=== PATIENT | female | born 1940 | race Caucasian/White ===

== ENCOUNTER 2018-05-21 06:53 | Inpatient (IN) ==
[2018-05-21] MEDS ORDERED: FUROSEMIDE 100 MG/10 ML VIAL IV STA (07:13)
[2018-05-21] MEDS ORDERED: FUROSEMIDE 40 MG/4 ML VIAL ONE (07:14)
[2018-05-21 07:27] LABS: Basophils # 0.1 10*3/uL (0.0-0.2); Basophils % 0.2 % (0.0-0.8); Eosinophils # 0.2 10*3/uL (0.0-0.87); Hematocrit 27.7 VOL% (35.7-47.0); Hemoglobin 8.7 GM/DL (12.0-16.0); Immature Granulocytes % 1.1 %; Immature Granulocytes Absolute 0.26 #; Lymphocytes # 2.2 10*3/uL (1.4-4.0); Lymphocytes % 9.5 % (21.3-54.2); Mean Corpuscular HGB Conc 31.4 GM/DL (32-36); Mean Corpuscular Hemoglobin 30 PG (27-34); Mean Corpuscular Volume 95.5 FL (87-102); Mean Platelet Volume 10.3 FL (9.6-12.0); Monocytes # 0.9 10*3/uL (0.11-0.8); Monocytes % 3.8 % (1.7-12.7); Neutrophils # 19.3 10*3/uL (1.4-7.4); Neutrophils % 84.4 % (38.7-73.9); Platelet Count 220 T/CUMM (130-400); Red Cell Distribution Width 12.8 % (9.3-17.3); White Blood Count 22.9 T/CUMM (4-12)
[2018-05-21 07:28] LABS: INR 0.9; PT Patient Result 9.9 SECS; Partial Thromboplastin Time 22.9 SECS (0-40)
[2018-05-21] MEDS ORDERED: ALBUTEROL 2.5 MG/3 ML NEB RESP TX SCH (07:30)
[2018-05-21 07:35] LABS: Albumin 3.4 G/DL (3.4-5.0); Bilirubin,Total 0.4 MG/DL (0.2-1.0); Calcium 7.4 MG/DL (8.5-10.1); Potassium 4.1 MMOL/L (3.5-5.1); Total Protein 7.3 G/DL (6.4-8.3)
[2018-05-21 07:41] LABS: ABG HCO3 23.5 MMOL/L (20-26); ABG Oxygen Saturation 91.7 % (95-100); ABG PCO2 57.3 MM HG (35-48); ABG PH 7.273 (7.35-7.45); ABG PO2 71.7 MM HG (80-95); ABG TCO2 24.9 MMOL/L (23-27)
[2018-05-21 07:46] LABS: Apearance,Urine CLEAR (Clear); Bilirubin,Urine Negative (Negative); Blood, Urine Negative (Negative); Glucose,Urine (UA) 50 mg/dL (Negative); Ketones,Urine Negative (Negative); Mucus,Urine Occasional /LPF (Occasional); Nitrite,Urine Negative (Negative); Protein,Urine >=500 MG/DL; RBC,Urine <1 /HPF (0-4); Urine Color Straw (Yellow); Urine Specific Gravity 1.008 (1.001-1.035); Urine Urobilinogen < 2.0 EU/DL (0.2-1.0); WBC,Urine 1 /HPF (0-6)
[2018-05-21 07:52] LABS: Anisocytosis 1+; Band Neutrophils 6 % (0-10); Eosinophils 1 % (0-10); Lymphocytes 6 % (20-55); Platelet Estimate Normal; Segmented Neutrophils 81 % (50-85); Total Cells Counted 100
[2018-05-21] MEDS ORDERED: ETOMIDATE 20 MG/10 ML VIAL IV ONE ×2 (08:09→08:10)
[2018-05-21] MEDS ORDERED: VECURONIUM 10 MG VIAL IV ONE (08:10)
[2018-05-21] MEDS ORDERED: PROPOFOL 1,000 MG/100 ML BOTTLE IV ONE (08:10)
[2018-05-21] MEDS: PROPOFOL 1,000 MG/100 ML BOTTLE IV SCH ×5 (08:16→23:16)
[2018-05-21] MEDS ORDERED: SODIUM CHLORIDE 0.9% 1,000 ML IV STA (08:16)
[2018-05-21] MEDS ORDERED: VECURONIUM 10 MG VIAL IV STA (08:31)
[2018-05-21 08:39] LABS: ABG Oxygen Saturation 98.8 % (95-100); ABG PCO2 50.5 MM HG (35-48); ABG PH 7.361 (7.35-7.45); ABG TCO2 29.5 MMOL/L (23-27)
[2018-05-21] MEDS ORDERED: ONDANSETRON 4 MG/2 ML VIAL IV PRN (09:52)
[2018-05-21] MEDS ORDERED: MORPHINE 4 MG/1 ML VIAL IV PRN (09:52)
[2018-05-21] MEDS ORDERED: METOPROLOL TARTRATE 5 MG/5 ML VIAL IV PRN (10:51)
[2018-05-21] MEDS ORDERED: LORazepam 2 MG/1 ML VIAL IV PRN (11:08)
[2018-05-21] MEDS: LEVOFLOXACIN 500 MG TABLET PER TUBE SCH (11:13)
[2018-05-21] MEDS: CARVEDILOL 25 MG TABLET PO SCH ×2 (11:13→20:15)
[2018-05-21] MEDS: SPIRONOLACTONE 25 MG TABLET PO SCH (11:13)
[2018-05-21] MEDS: ENOXAPARIN 30 MG/0.3 ML SYRINGE SUBCUT SCH (11:13)
[2018-05-21] MEDS: SODIUM CHLORIDE 0.9% 1,000 ML IV SCH (11:14)
[2018-05-21] MEDS ORDERED: DOXAZOSIN 2 MG TABLET PO SCH (11:30)
[2018-05-21] MEDS: FAMOTIDINE 20 MG/2 ML VIAL IV SCH (11:46)
[2018-05-21] MEDS ORDERED: DEXTROSE 50% 25 GM/50 ML VIAL IV PRN (13:56)
[2018-05-21] MEDS ORDERED: GLUCAGON 1 MG VIAL IM PRN (13:56)
[2018-05-21] MEDS ORDERED: FUROSEMIDE 40 MG/4 ML VIAL IV ONE (14:00)
[2018-05-21] MEDS: INSULIN LISPRO 100 UNIT/ML SUBCUT SCH ×2 (16:18→20:15)
[2018-05-21] MEDS: LETROZOLE 2.5 MG TABLET PO SCH (20:15)
[2018-05-22] MEDS: PROPOFOL 1,000 MG/100 ML BOTTLE IV SCH ×5 (03:14→22:49)
[2018-05-22 03:16] LABS: ABG Base Excess 4.2 MMOL/L (-2.5-2.5); ABG HCO3 28.2 MMOL/L (20-26); ABG Oxygen Saturation 99.9 % (95-100); ABG PCO2 29.3 MM HG (35-48); ABG PH 7.561 (7.35-7.45); ABG TCO2 24.5 MMOL/L (23-27); Allen Test Positive; Pt O2 Delivery Device Ventilator
[2018-05-22 06:57] LABS: Basophils % 0.2 % (0.0-0.8); Eosinophils # 0.1 10*3/uL (0.0-0.87); Eosinophils % 0.6 % (0.00-10.9); Immature Granulocytes % 0.5 %; Immature Granulocytes Absolute 0.05 #; Lymphocytes # 1.7 10*3/uL (1.4-4.0); Mean Corpuscular HGB Conc 31.8 GM/DL (32-36); Mean Corpuscular Hemoglobin 29 PG (27-34); Mean Corpuscular Volume 92.1 FL (87-102); Mean Platelet Volume 10.5 FL (9.6-12.0); Monocytes # 1.1 10*3/uL (0.11-0.8); Monocytes % 10.9 % (1.7-12.7); Neutrophils % 70.8 % (38.7-73.9); Platelet Count 171 T/CUMM (130-400); Red Blood Count 2.39 MC/CUMM (3.8-5.5); Red Cell Distribution Width 12.7 % (9.3-17.3); White Blood Count 9.9 T/CUMM (4-12)
[2018-05-22 07:25] LABS: Calcium 7.3 MG/DL (8.5-10.1); Osmolality,Calculated 290.1 MOS/KG (273-304); Potassium 3.4 MMOL/L (3.5-5.1)
[2018-05-22 07:27] LABS: Troponin I 1.92 NG/ML (0.00-0.045)
[2018-05-22 07:44] LABS: Risk Ratio 3.85; Thyroid Stimulating Hormone 0.295 uIU/ml (0.358-3.74); VLDL CHOLESTEROL 22.8 MG/DL
[2018-05-22] MEDS: CARVEDILOL 25 MG TABLET PO SCH ×2 (08:25→20:45)
[2018-05-22] MEDS: LEVOFLOXACIN 500 MG TABLET PER TUBE SCH (08:25)
[2018-05-22] MEDS: FAMOTIDINE 20 MG/2 ML VIAL IV SCH (08:26)
[2018-05-22] MEDS: SPIRONOLACTONE 25 MG TABLET PO SCH (08:29)
[2018-05-22] MEDS: FUROSEMIDE 40 MG/4 ML VIAL IV SCH ×2 (08:29→15:07)
[2018-05-22] MEDS: INSULIN LISPRO 100 UNIT/ML SUBCUT SCH ×4 (08:58→22:32)
[2018-05-22] MEDS ORDERED: DOXAZOSIN 1 MG TABLET PO SCH (09:00)
[2018-05-22] MEDS: ENOXAPARIN 30 MG/0.3 ML SYRINGE SUBCUT SCH (10:00)
[2018-05-22] MEDS: SODIUM CHLORIDE 0.9% 1,000 ML IV SCH ×2 (11:34→18:12)
[2018-05-22] MEDS ORDERED: FUROSEMIDE 40 MG/4 ML VIAL IV ONE (15:00)
[2018-05-22 18:28] LABS: Hematocrit 26.7 VOL% (35.7-47.0)
[2018-05-22 18:30] LABS: Hemoglobin 8.9 GM/DL (12.0-16.0)
[2018-05-22] MEDS: amLODIPine 5 MG TABLET PO SCH (20:45)
[2018-05-22] MEDS: LETROZOLE 2.5 MG TABLET PO SCH (20:45)
[2018-05-23] MEDS: PROPOFOL 1,000 MG/100 ML BOTTLE IV SCH ×3 (02:43→08:50)
[2018-05-23 04:32] LABS: ABG HCO3 26.5 MMOL/L (20-26); ABG Oxygen Saturation 98.4 % (95-100); ABG PCO2 40.6 MM HG (35-48); ABG PH 7.432 (7.35-7.45); ABG TCO2 27.7 MMOL/L (23-27); Allen Test Positive; Pt O2 Delivery Device Ventilator
[2018-05-23 05:03] LABS: Basophils % 0.3 % (0.0-0.8); Eosinophils # 0.2 10*3/uL (0.0-0.87); Eosinophils % 1.6 % (0.00-10.9); Hematocrit 27.3 VOL% (35.7-47.0); Hemoglobin 8.7 GM/DL (12.0-16.0); Immature Granulocytes % 0.6 %; Immature Granulocytes Absolute 0.06 #; Lymphocytes # 1.5 10*3/uL (1.4-4.0); Lymphocytes % 14.8 % (21.3-54.2); Mean Corpuscular HGB Conc 31.9 GM/DL (32-36); Mean Corpuscular Hemoglobin 29 PG (27-34); Mean Corpuscular Volume 91.9 FL (87-102); Mean Platelet Volume 10.5 FL (9.6-12.0); Monocytes # 1.1 10*3/uL (0.11-0.8); Monocytes % 11.5 % (1.7-12.7); Neutrophils % 71.2 % (38.7-73.9); Platelet Count 179 T/CUMM (130-400); Red Blood Count 2.97 MC/CUMM (3.8-5.5); Red Cell Distribution Width 13.8 % (9.3-17.3); White Blood Count 9.8 T/CUMM (4-12)
[2018-05-23 05:21] LABS: Calcium 7.1 MG/DL (8.5-10.1); Osmolality,Calculated 292.8 MOS/KG (273-304); Potassium 3.4 MMOL/L (3.5-5.1)
[2018-05-23] MEDS: INSULIN LISPRO 100 UNIT/ML SUBCUT SCH ×4 (08:41→22:17)
[2018-05-23] MEDS: SODIUM CHLORIDE 0.9% 1,000 ML IV SCH (08:42)
[2018-05-23] MEDS: FUROSEMIDE 40 MG/4 ML VIAL IV SCH ×2 (08:42→16:39)
[2018-05-23] MEDS: ASPIRIN EC 81 MG TABLET PO SCH (08:42)
[2018-05-23] MEDS: SPIRONOLACTONE 25 MG TABLET PO SCH (08:42)
[2018-05-23] MEDS: FAMOTIDINE 20 MG/2 ML VIAL IV SCH (08:43)
[2018-05-23] MEDS: LEVOFLOXACIN 500 MG TABLET PER TUBE SCH (08:43)
[2018-05-23] MEDS: CARVEDILOL 25 MG TABLET PO SCH ×2 (08:43→22:17)
[2018-05-23 09:36] LABS: ABG Base Excess 0.7 MMOL/L (-2.5-2.5); ABG Oxygen Saturation 97.5 % (95-100); ABG PCO2 41.9 MM HG (35-48); ABG PH 7.394 (7.35-7.45); ABG PO2 95.7 MM HG (80-95); ABG TCO2 23.5 MMOL/L (23-27); Pt O2 Delivery Device Ventilator
[2018-05-23] MEDS: ENOXAPARIN 30 MG/0.3 ML SYRINGE SUBCUT SCH (11:17)
[2018-05-23] MEDS: LETROZOLE 2.5 MG TABLET PO SCH (22:17)
[2018-05-23] MEDS: amLODIPine 5 MG TABLET PO SCH (22:17)
[2018-05-23] MEDS ORDERED: MELATONIN 3 MG TABLET PO PRN (22:52)
[2018-05-24] MEDS: SODIUM CHLORIDE 0.9% 1,000 ML IV SCH ×2 (04:01→08:54)
[2018-05-24 05:16] LABS: Basophils % 0.3 % (0.0-0.8); Eosinophils # 0.1 10*3/uL (0.0-0.87); Eosinophils % 0.7 % (0.00-10.9); Hematocrit 29.2 VOL% (35.7-47.0); Hemoglobin 9.2 GM/DL (12.0-16.0); Immature Granulocytes % 0.7 %; Immature Granulocytes Absolute 0.08 #; Lymphocytes # 1.4 10*3/uL (1.4-4.0); Lymphocytes % 12.2 % (21.3-54.2); Mean Corpuscular HGB Conc 31.5 GM/DL (32-36); Mean Corpuscular Hemoglobin 29 PG (27-34); Mean Corpuscular Volume 92.7 FL (87-102); Mean Platelet Volume 10.3 FL (9.6-12.0); Monocytes # 1.2 10*3/uL (0.11-0.8); Monocytes % 10.7 % (1.7-12.7); Neutrophils # 8.6 10*3/uL (1.4-7.4); Neutrophils % 75.4 % (38.7-73.9); Platelet Count 173 T/CUMM (130-400); Red Blood Count 3.15 MC/CUMM (3.8-5.5); Red Cell Distribution Width 13.2 % (9.3-17.3); White Blood Count 11.4 T/CUMM (4-12)
[2018-05-24 05:46] LABS: Calcium 7.4 MG/DL (8.5-10.1); Potassium 3.3 MMOL/L (3.5-5.1)
[2018-05-24] MEDS: POTASSIUM CHLORIDE 20 MEQ/15 ML UDCUP PER TUBE PRN ×2 (06:29→11:34)
[2018-05-24] MEDS: INSULIN LISPRO 100 UNIT/ML SUBCUT SCH ×4 (07:26→21:58)
[2018-05-24] MEDS ORDERED: POTASSIUM CHLORIDE 20 MEQ TABLET PO ONE (07:28)
[2018-05-24] MEDS: Cevimeline Hcl [Cevimeline Hcl] 30 MG PO SCH ×3 (08:00→21:57)
[2018-05-24] MEDS: FUROSEMIDE 40 MG/4 ML VIAL IV SCH ×2 (08:10→16:47)
[2018-05-24] MEDS: SPIRONOLACTONE 25 MG TABLET PO SCH (08:10)
[2018-05-24] MEDS: FAMOTIDINE 20 MG TABLET PO SCH ×2 (08:10→21:58)
[2018-05-24] MEDS: CARVEDILOL 25 MG TABLET PO SCH ×2 (08:10→21:57)
[2018-05-24] MEDS: LEVOFLOXACIN 500 MG TABLET PO SCH (08:10)
[2018-05-24] MEDS: PROPOFOL 1,000 MG/100 ML BOTTLE IV SCH (08:54)
[2018-05-24] MEDS ORDERED: DOXAZOSIN 2 MG TABLET PO SCH (09:00)
[2018-05-24] MEDS ORDERED: DOXAZOSIN 1 MG TABLET PO SCH (09:30)
[2018-05-24] MEDS: ENOXAPARIN 30 MG/0.3 ML SYRINGE SUBCUT SCH (09:30)
[2018-05-24] MEDS: ESCITALOPRAM 10 MG TABLET PO SCH (11:33)
[2018-05-24] MEDS: MAGNESIUM OXIDE 400 MG TABLET PO SCH (11:33)
[2018-05-24] MEDS: POTASSIUM CHLORIDE 10 MEQ TABLET PO SCH (11:34)
[2018-05-24] MEDS: LETROZOLE 2.5 MG TABLET PO SCH (21:57)
[2018-05-24] MEDS: amLODIPine 5 MG TABLET PO SCH (21:58)
[2018-05-25 06:45] LABS: Calcium 7.4 MG/DL (8.5-10.1); Osmolality,Calculated 294.1 MOS/KG (273-304); Potassium 4.2 MMOL/L (3.5-5.1)
[2018-05-25] MEDS: FUROSEMIDE 40 MG/4 ML VIAL IV SCH ×2 (09:31→15:36)
[2018-05-25] MEDS: ENOXAPARIN 30 MG/0.3 ML SYRINGE SUBCUT SCH (09:31)
[2018-05-25] MEDS: FAMOTIDINE 20 MG TABLET PO SCH ×2 (09:35→21:20)
[2018-05-25] MEDS: CARVEDILOL 25 MG TABLET PO SCH ×2 (09:35→21:22)
[2018-05-25] MEDS: MAGNESIUM OXIDE 400 MG TABLET PO SCH (09:36)
[2018-05-25] MEDS: ASPIRIN EC 81 MG TABLET PO SCH (09:36)
[2018-05-25] MEDS: ESCITALOPRAM 10 MG TABLET PO SCH (09:36)
[2018-05-25] MEDS: LEVOFLOXACIN 500 MG TABLET PO SCH (09:36)
[2018-05-25] MEDS: POTASSIUM CHLORIDE 10 MEQ TABLET PO SCH (09:36)
[2018-05-25] MEDS: SPIRONOLACTONE 25 MG TABLET PO SCH (09:36)
[2018-05-25] MEDS: INSULIN LISPRO 100 UNIT/ML SUBCUT SCH ×4 (09:37→21:25)
[2018-05-25] MEDS: PROPOFOL 1,000 MG/100 ML BOTTLE IV SCH (09:38)
[2018-05-25] MEDS: Cevimeline Hcl [Cevimeline Hcl] 30 MG PO SCH ×3 (09:39→21:23)
[2018-05-25 14:13] LABS: Apearance,Urine CLOUDY (Clear); Bacteria,Urine Many /HPF (Few); Bilirubin,Urine Negative (Negative); Blood, Urine Negative (Negative); Glucose,Urine (UA) Negative (Negative); Ketones,Urine Negative (Negative); Mucus,Urine Occasional /LPF (Occasional); Nitrite,Urine Negative (Negative); Protein,Urine 100 MG/DL; Urine Color Yellow (Yellow); Urine Specific Gravity 1.011 (1.001-1.035); Urine Urobilinogen < 2.0 EU/DL (0.2-1.0); WBC,Urine 539 /HPF (0-6)
[2018-05-25] MEDS: amLODIPine 5 MG TABLET PO SCH (21:21)
[2018-05-25] MEDS: LETROZOLE 2.5 MG TABLET PO SCH (21:21)
[2018-05-25] MEDS: DOXAZOSIN 1 MG TABLET PO SCH (21:22)
[2018-05-26 05:49] LABS: Calcium 6.9 MG/DL (8.5-10.1); Osmolality,Calculated 293.3 MOS/KG (273-304); Potassium 4.1 MMOL/L (3.5-5.1)
[2018-05-26] MEDS: INSULIN LISPRO 100 UNIT/ML SUBCUT SCH ×2 (08:32→12:51)
[2018-05-26] MEDS: FUROSEMIDE 40 MG/4 ML VIAL IV SCH (08:50)
[2018-05-26] MEDS: CARVEDILOL 25 MG TABLET PO SCH (08:50)
[2018-05-26] MEDS: DOXAZOSIN 1 MG TABLET PO SCH (08:50)
[2018-05-26] MEDS: SPIRONOLACTONE 25 MG TABLET PO SCH (08:50)
[2018-05-26] MEDS: ESCITALOPRAM 10 MG TABLET PO SCH (08:50)
[2018-05-26] MEDS: POTASSIUM CHLORIDE 10 MEQ TABLET PO SCH (08:51)
[2018-05-26] MEDS: MAGNESIUM OXIDE 400 MG TABLET PO SCH (08:51)
[2018-05-26] MEDS: FAMOTIDINE 20 MG TABLET PO SCH (08:51)
[2018-05-26] MEDS: Cevimeline Hcl [Cevimeline Hcl] 30 MG PO SCH ×2 (08:51→15:24)
[2018-05-26] MEDS: ENOXAPARIN 30 MG/0.3 ML SYRINGE SUBCUT SCH (08:59)
[2018-05-26] MEDS ORDERED: LEVOFLOXACIN 250 MG TABLET PO SCH (09:30)
[2018-05-26 12:27] VITALS: BP 126/63
[2018-05-26] MEDS ORDERED: FUROSEMIDE 40 MG TABLET PO SCH (16:00)
[2018-05-26] MEDS ORDERED: ATORVASTATIN 40 MG TABLET PO SCH (21:00)
== END 2018-05-26 16:13 | disposition swing bed (61) | DRG 208 ==
LOC: EDUNIT# → EDBD → N.ED 06:53 → N.EDINP 08:35 → SUATTDRO 08:35 → N.CC 09:10 → N.TELEN 05-24 10:43
PROVIDERS: ADMIT Internal Medicine; ATTEND Internal Medicine